=== PATIENT | male | born 1985 | race Two or more races ===

== ENCOUNTER 2019-04-19 19:32 | Emergency (ER) | payer SELFPAY ==
[2019-04-19] MEDS ORDERED: DIPH/PERTUSS(ACELL)/TETANUS VAC/PF 0.5 ML SYR (>=10YO) IM ONE ×2 (20:55→23:40)
--- NOTE | 2019-04-19 20:56 | ER Document Report ---
ED Medical Screen (RME) - General Chief Complaint: Hand Pain Stated Complaint: LEFT HAND LACERATION Time Seen by Provider: 04/19/19 20:54 Mode of Arrival: Ambulatory Information source: Patient Notes: Patient presents emergency department with wound to the palm of his left hand. Reports he stabbed himself with a screwdriver accidentally. Reports he is not sure when his last tetanus was. Reports pain with movement of hand. Reports it was a dirty screwdriver. I have greeted and performed a rapid initial assessment of this patient. A comprehensive ED assessment and evaluation of the patient, analysis of test results and completion of the medical decision making process will be conducted by additional ED providers. Dictation of this chart was performed using voice recognition software; therefore, there may be some unintended grammatical errors. Physical Exam - Vital signs Vitals: Temp Pulse Resp BP Pulse Ox 98.4 F 87 18 135/72 H 100 04/19/19 20:00 04/19/19 20:00 04/19/19 20:00 04/19/19 20:00 04/19/19 20:00 Course - Vital Signs Vital signs: Temp Pulse Resp BP Pulse Ox 98.4 F 87 18 135/72 H 100 04/19/19 20:00 04/19/19 20:00 04/19/19 20:00 04/19/19 20:00 04/19/19 20:00
--- NOTE | 2019-04-19 21:57 | RADIOLOGY REPORT (SQ) ---
3 VIEWS OF LEFT HAND EXAM DATE: 04/19/2019 8:55 PM [employer] HISTORY: Stabbed self with screwdriver. COMPARISON: None. FINDINGS: No acute fracture or dislocation is seen. The joint spaces are preserved. No radiopaque foreign body is identified. Diffuse soft tissue swelling. IMPRESSION: Diffuse swelling of the left hand without fracture or foreign body.
[2019-04-20] MEDS ORDERED: CEPHALEXIN 500 MG CAPSULE PO ONE (00:56)
[2019-04-20] MEDS ORDERED: BACITRACIN ZINC OINTMENT 15 GM TP ONE (01:00)
--- NOTE | 2019-04-20 01:00 | ER Document Report ---
ED General - General Chief Complaint: Puncture Wound Stated Complaint: LEFT HAND LACERATION Time Seen by Provider: 04/19/19 20:54 Primary Care Provider: EFRAIN TEJADA MD [ACTIVE STAFF] - Follow up in 1 week Mode of Arrival: Ambulatory Notes: 33-year-old male presents with puncture wound to left palm that occurred around 7 PM. Patient states he accidentally hit it with an old screwdriver. Tetanus was updated in ER today. Patient states he is right-handed. Patient's hand was soaked with normal saline and Hibiclens. TRAVEL OUTSIDE OF THE [place] IN LAST 30 DAYS: No - Related Data Home Medications: none Past Medical History - General Information source: Patient - Social History Smoking Status: Current Every Day Smoker Chew tobacco use (# tins/day): No Frequency of alcohol use: None Drug Abuse: None Family History: None Patient has suicidal ideation: No Patient has homicidal ideation: No Review of Systems - Review of Systems Notes: Constitutional: Negative for fever. HENT: Negative for sore throat. Eyes: Negative for visual changes. Cardiovascular: Negative for chest pain. Respiratory: Negative for shortness of breath. Gastrointestinal: Negative for abdominal pain, vomiting or diarrhea. Genitourinary: Negative for dysuria. Musculoskeletal: Negative for back pain. Skin: Positive for puncture wound. Negative for rash. Neurological: Negative for headaches, weakness or numbness. 10 point ROS negative except as marked above and in HPI. Physical Exam - Vital signs Vitals: Temp Pulse Resp BP Pulse Ox 98.4 F 87 18 135/72 H 100 04/19/19 20:00 04/19/19 20:00 04/19/19 20:00 04/19/19 20:00 04/19/19 20:00 - Notes Notes: GENERAL: Well-appearing, well-nourished and in no acute distress. HEAD: Atraumatic, normocephalic. EYES: Extraocular movements intact, sclera anicteric, conjunctiva are normal. NECK: Normal range of motion, supple without lymphadenopathy or JVD. EXTREMITIES: Normal range of motion, no pitting or edema. No clubbing or cyanosis. NEUROLOGICAL: Cranial nerves II through XII grossly intact. Normal speech, normal gait. PSYCH: Normal mood, normal affect. SKIN: Small puncture wound noted to left palm. Full range of motion to left hand. No surrounding erythema or pus drainage. Warm, Dry, normal turgor, no rashes or lesions noted. Course - Re-evaluation Re-evalutation: 04/20/19 33-year-old male presents with puncture wound. Tetanus was updated in ER today. Patient has full range of motion to hand. No fever. Patient is nontoxic, well-appearing. No signs of any infection on exam. Patient was started on Keflex. Patient was given strict return precautions. Patient given follow-up with PCP for recheck in 1 week. X-ray shows no foreign bodies or fractures. Discussed all results with patient. Patient voices understanding agrees with plan of care. - Vital Signs Vital signs: Temp Pulse Resp BP Pulse Ox 98.2 F 84 20 109/71 100 04/20/19 01:13 04/20/19 01:13 04/20/19 01:13 04/20/19 01:13 04/20/19 01:13 Discharge - Discharge Clinical Impression: Puncture wound of left hand Qualifiers: Encounter type: initial encounter Foreign body presence: without foreign body Qualified Code(s): S61.432A - Puncture wound without foreign body of left hand, initial encounter Condition: Stable Disposition: HOME, SELF-CARE Additional Instructions: Your hand x-ray did not show any foreign bodies or fracture. We updated your tetanus today. We also gave you 1 dose of Keflex. Please take Keflex as prescribed and finish all doses even if you feel better. May use bacitracin or Neosporin the first few days. Please keep covered while out or at work. Please watch for signs of infection which include redness to the area, swelling, increased pain, pus drainage, area being hot to touch. Return to ER immediately if you start having any of the symptoms, fever, increased pain or any other symptoms that are concerning to you. Please follow-up with primary care doctor in 1 week for follow-up. Prescriptions: Cephalexin Monohydrate [Keflex 500 mg Capsule] 500 mg PO Q6H 10 Days capsule Ibuprofen [Motrin 800 mg Tablet] 800 mg PO Q8H PRN #30 tab PRN Reason: Forms: Return to Work Referrals: EFRAIN TEJADA MD [ACTIVE STAFF] - Follow up in 1 week
[2019-04-20 01:14] VITALS: BP 109/71
== END 2019-04-20 01:38 | disposition home or self-care (01) ==
LOC: ER 19:32
DX: S61.432A Puncture wound without foreign body of left hand, initial encounter (principal); W27.0XXA Contact with workbench tool, initial encounter; F17.200 Nicotine dependence, unspecified, uncomplicated
CPT/HCPCS: 90471; 90715; 99283; J3490